=== PATIENT | female | born 1955 | race Caucasian/White ===

== ENCOUNTER 2019-07-08 11:51 | Inpatient (IN) | payer BC ==
[2019-07-08] VITALS (28 sets, daily range): BP systolic 70–131; BP diastolic 40–82
[~2019-07-08] VITALS: Ht 165.1 cm; Wt 65.3 kg
[2019-07-08] MEDS ORDERED: LIPITOR (12:00)
[2019-07-08] MEDS ORDERED: MELOXICAM (12:00)
[2019-07-08] MEDS ORDERED: IV NORMAL SALINE 1000 ML BAG IV ONE (12:00)
[2019-07-08] MEDS ORDERED: METFORMIN (12:00)
[2019-07-08] MEDS ORDERED: ONDANSETRON 4 MG/2 ML VIAL ONE (12:05)
[2019-07-08] MEDS ORDERED: ACETAMINOPHEN ES 500 MG TABLET ONE (12:14)
[2019-07-08] MEDS ORDERED: ONDANSETRON 4 MG/2 ML VIAL IV ONE (12:15)
[2019-07-08] MEDS ORDERED: ACETAMINOPHEN 325 MG TABLET PO ONE (12:15)
[2019-07-08 12:21] LABS: BASOPHILS % (AUTO) 0.1 % (0.0-2.0); HEMATOCRIT 41.8 % (31.2-41.9); HEMOGLOBIN 13.7 g/dL (10.9-14.3); LYMPHOCYTES # (AUTO) 0.5 K/uL (20.0-40.0); LYMPHOCYTES % (AUTO) 13.7 % (20.5-51.5); MEAN CORPUSCULAR HEMOGLOBIN 31.6 uug (24.7-32.8); MEAN CORPUSCULAR HGB CONC 33 g/dL (32.3-35.6); MEAN CORPUSCULAR VOLUME 96.3 fL (75.5-95.3); MONOCYTES % (AUTO) 0.4 % (0.0-11.0); NEUTROPHILS # (AUTO) 3.2 K/uL (1.8-8.9); NEUTROPHILS % (AUTO) 85.8 % (38.5-71.5); PLATELET COUNT (AUTO) 156 K/uL (179-408); RED BLOOD CELL COUNT(AUTO) 4.34 MIL/uL (3.63-4.92); WHITE BLOOD COUNT (AUTO) 3.7 K/uL (3.8-11.8)
[2019-07-08 12:30] LABS: CREATININE 1.6 mg/dL (0.6-1.3); POTASSIUM 3.3 mmol/L (3.5-5.1)
[2019-07-08 12:42] LABS: BILIRUBIN,DIRECT 0.5 mg/dL (0.0-0.2); BILIRUBIN,TOTAL 1.1 mg/dL (0.2-1.0); TOTAL PROTEIN, SERUM 7.1 g/dL (6.4-8.2)
[2019-07-08] MEDS ORDERED: IV NORMAL SALINE 500 ML BAG IV ONE ×2 (12:45→14:30)
[2019-07-08] MEDS ORDERED: PIPERACILLIN SODIUM/TAZOBACTAM 3.375 G in IV DEXTROSE 5% 50 ML IV ONE (13:00)
[2019-07-08] MEDS ORDERED: PIPERACILLIN/TAZOBACTAM/D5W 50 ML IV ONE (13:09)
[2019-07-08 13:10] LABS: *BILIRUBIN,URIN NEGATIVE (NEGATIVE); *BLOOD, URINE 2+ (NEGATIVE); *CLARITY,URINE SLIGHTLY CLOUDY (CLEAR); *COLOR,URINE YELLOW (YELLOW); *KETONES,URINE TRACE (NEGATIVE); *UROBILINOGEN,URINE 0.2 E.U./dl (NORMAL); LEUKOCYTE ESTERASE ,URINE TRACE (NEGATIVE); NITRITE, URINE POSITIVE (NEGATIVE); PH,URINE 5.5 (5.0-8.0); UGLUCOSE NEGATIVE (NEGATIVE)
[2019-07-08] MEDS ORDERED: ATOR10TA PO (13:10)
[2019-07-08] MEDS ORDERED: METF-440 PO (13:10)
[2019-07-08 13:16] LABS: ABG HCO3 13.3 mmol/L; ABG PCO2 23.2 mmHg (35.0-45.0); ABG PH 7.377 (7.350-7.450); ABG PO2 67.2 mmHg (75.0-100.0); ABG SITE LEFT RADIAL; ABG TOTAL HEMOGLOBIN 12.3 G/dL (12.0-16.0); COHb 0.9 % (0.5-1.5); MetHb 0.4 % (0.0-1.5); O2Hb 91.7 % (94.0-97.0); VENT MODE room air
[2019-07-08 13:20] LABS: BACTERIA,URINE MODERATE /HPF (NONE SEEN); SQUAMOUS EPITHELIAL CELL,UR FEW /HPF (NONE SEEN); WBC,URINE 0-3 /HPF (0-3)
[2019-07-08] MEDS ORDERED: NOREPINEPHRINE BITARTRATE 8 MG in IV DEXTROSE 5% 500 ML IV ONE (14:30)
[2019-07-08] MEDS ORDERED: MORPHINE SULFATE 2 MG/1 ML DISP.SYRIN IV PRN (16:30)
[2019-07-08] MEDS ORDERED: PHENYLEPHRINE IV 20 MG in IV DEXTROSE 5% 250 ML IV PRN (16:30)
[2019-07-08] MEDS ORDERED: ONDANSETRON 4 MG/2 ML VIAL IV PRN (16:30)
[2019-07-08] MEDS ORDERED: POTASSIUM CHLORIDE 20 MEQ in IV NS 1000 ML 1,000 ML IV PRN (16:30)
[2019-07-08] MEDS ORDERED: VANCOMYCIN IV 1,000 MG in IV DEXTROSE 5% 250 ML IV SCH (17:00)
[2019-07-08] MEDS: NOREPINEPHRINE BITARTRATE 8 MG in IV DEXTROSE 5% 500 ML IV PRN ×2 (17:02→20:16)
[2019-07-08] MEDS: PHENYLEPHRINE IV 20 MG in IV DEXTROSE 5% 250 ML IV PRN ×2 (18:54→21:54)
[2019-07-08] MEDS ORDERED: IV NORMAL SALINE 500 ML IV ONE (20:15)
[2019-07-08] MEDS: ACETAMINOPHEN 325 MG TABLET PO PRN (20:39)
[2019-07-08] MEDS: MELATONIN 3 MG TABLET PO SCH (20:41)
[2019-07-08] MEDS ORDERED: DEXTROSE 50% 50 ML DISP.SYRIN IV PRN (20:45)
[2019-07-08] MEDS: PIPERACILLIN SODIUM/TAZOBACTAM 3.375 G in IV DEXTROSE 5% 50 ML IV SCH (21:31)
[2019-07-08] MEDS: BLOOD SUGAR DIAGNOSTIC 1 EACH STRIP VI SCH (21:46)
[2019-07-08] MEDS: INSULIN REGULAR, HUMAN 300 UNIT/3 ML VIAL SQ PRN (21:52)
[2019-07-09] VITALS (83 sets, daily range): BP systolic 73–147; BP diastolic 37–117
[2019-07-09] MEDS: NOREPINEPHRINE BITARTRATE 8 MG in IV DEXTROSE 5% 500 ML IV PRN ×4 (00:24→19:45)
[2019-07-09] MEDS: PHENYLEPHRINE IV 20 MG in IV DEXTROSE 5% 250 ML IV PRN ×4 (00:24→08:30)
[2019-07-09] MEDS: PIPERACILLIN SODIUM/TAZOBACTAM 3.375 G in IV DEXTROSE 5% 50 ML IV SCH (05:16)
[2019-07-09 05:31] LABS: BILIRUBIN,TOTAL 1.4 mg/dL (0.2-1.0); CREATININE 2.3 mg/dL (0.6-1.3); PHOSPHOROUS 3.7 mg/dL (2.5-4.9); POTASSIUM 3.7 mmol/L (3.5-5.1); TOTAL PROTEIN, SERUM 5.9 g/dL (6.4-8.2)
[2019-07-09 05:33] LABS: MAGNESIUM 1.2 mg/dL (1.8-2.4)
[2019-07-09 05:36] LABS: THYROID STIMULATING HORMONE 0.634 mIU/mL (0.358-3.740)
[2019-07-09 06:24] LABS: BASOPHILS # (AUTO) 0.1 K/uL (0.0-8.0); HEMOGLOBIN 12.5 g/dL (10.9-14.3); LYMPHOCYTES # (AUTO) 1.4 K/uL (20.0-40.0); LYMPHOCYTES % (AUTO) 3.7 % (20.5-51.5); PLATELET COUNT (AUTO) 105 K/uL (179-408)
[2019-07-09 06:26] LABS: BASOPHILS % (AUTO) 0.3 % (0.0-2.0); EOSINOPHILS # (AUTO) 9.1 K/uL (0.0-0.7); EOSINOPHILS % (AUTO) 23.9 % (0.0-7.0); MEAN CORPUSCULAR HEMOGLOBIN 30.8 uug (24.7-32.8); MEAN CORPUSCULAR HGB CONC 33 g/dL (32.3-35.6); MEAN CORPUSCULAR VOLUME 93.5 fL (75.5-95.3); MONOCYTES # (AUTO) 0.8 K/uL (2.0-10.0); NEUTROPHILS # (AUTO) 26.6 K/uL (1.8-8.9); NEUTROPHILS % (AUTO) 70.1 % (38.5-71.5); RED BLOOD CELL COUNT(AUTO) 4.07 MIL/uL (3.63-4.92)
[2019-07-09 07:13] LABS: BAND % (MANUAL) 14 % (0-10); LYMPHOCYTES % (MANUAL) 1 % (20-40); METAMYELOCYTES % 10 % (0-1); MONOCYTES % (MANUAL) 3 % (2-10); MYELOCYTES % 4 % (0-0); NEUTROPHILS % (MANUAL) 68 % (42-75)
[2019-07-09] MEDS: PANTOPRAZOLE SODIUM 40 MG TABLET.DR PO SCH (07:25)
[2019-07-09] MEDS: BLOOD SUGAR DIAGNOSTIC 1 EACH STRIP VI SCH ×4 (07:49→20:50)
[2019-07-09] MEDS: INSULIN REGULAR, HUMAN 300 UNIT/3 ML VIAL SQ PRN ×4 (07:52→20:58)
[2019-07-09] MEDS: IV LACTATED RINGERS SOLUTION 1,000 ML IV PRN ×2 (08:29→21:37)
[2019-07-09] MEDS: MAGNESIUM SULFATE/D5W 100 ML IV SCH ×3 (09:27→11:30)
[2019-07-09 09:40] LABS: *BILIRUBIN,URIN NEGATIVE (NEGATIVE); *BLOOD, URINE 2+ (NEGATIVE); *COLOR,URINE YELLOW (YELLOW); *KETONES,URINE NEGATIVE (NEGATIVE); *UROBILINOGEN,URINE 0.2 E.U./dl (NORMAL); LEUKOCYTE ESTERASE ,URINE 1+ (NEGATIVE); NITRITE, URINE NEGATIVE (NEGATIVE); PH,URINE 5.5 (5.0-8.0); UGLUCOSE NEGATIVE (NEGATIVE)
[2019-07-09 09:41] LABS: *CLARITY,URINE HAZY (CLEAR)
[2019-07-09 09:46] LABS: *CREATININE,URINE 43.6 mg/dL (30-125); *URINE TOTAL PROTEIN RANDOM 34.2 mg/dL (<150/24HR)
[2019-07-09 09:48] LABS: RBC,URINE 20-50 /HPF (0-3)
[2019-07-09 09:50] LABS: BACTERIA,URINE MODERATE /HPF (NONE SEEN); SQUAMOUS EPITHELIAL CELL,UR FEW /HPF (NONE SEEN); WBC,URINE 20-50 /HPF (0-3)
[2019-07-09] MEDS ORDERED: VANCOMYCIN IV 1,000 MG in IV DEXTROSE 5% 250 ML IV ONE (10:00)
[2019-07-09] MEDS ORDERED: MEROPENEM 500 MG in IV NORMAL SALINE 50 ML IV SCH (10:15)
[2019-07-09] MEDS ORDERED: DOSING PER PHARMACY-AMIKACIN IV XX PRN (10:15)
[2019-07-09] MEDS: PHENYLEPHRINE IV 40 MG in IV DEXTROSE 5% 250 ML IV PRN ×2 (10:22→13:59)
[2019-07-09] MEDS: MEROPENEM 500 MG in IV NORMAL SALINE 50 ML IV SCH ×2 (11:04→20:50)
[2019-07-09] MEDS: AMIKACIN 300 MG in IV DEXTROSE 5% 100 ML IV SCH (11:40)
[2019-07-09] MEDS ORDERED: ASPIRIN 81 MG TAB.CHEW PO ONE (13:00)
[2019-07-09] MEDS: PHENYLEPHRINE IV 80 MG in IV DEXTROSE 5% 250 ML IV PRN (17:31)
[2019-07-09] MEDS: ACETAMINOPHEN 325 MG TABLET PO PRN (20:02)
[2019-07-09] MEDS: TAMSULOSIN HCL 0.4 MG CAP.SR.24H PO SCH (20:49)
[2019-07-09] MEDS: ATORVASTATIN 10 MG TABLET PO SCH (20:49)
[2019-07-09] MEDS: MELATONIN 3 MG TABLET PO SCH (20:58)
[2019-07-09] MEDS ORDERED: TEMAZEPAM 7.5 MG CAPSULE PO ONE (22:00)
[2019-07-10] VITALS (72 sets, daily range): BP systolic 82–139; BP diastolic 45–92
[2019-07-10] MEDS: ACETAMINOPHEN 325 MG TABLET PO PRN ×2 (01:40→20:51)
[2019-07-10] MEDS: PHENYLEPHRINE IV 80 MG in IV DEXTROSE 5% 250 ML IV PRN ×2 (02:02→10:10)
[2019-07-10] MEDS: AMIKACIN 300 MG in IV DEXTROSE 5% 100 ML IV SCH ×3 (04:55→22:20)
[2019-07-10] MEDS: PANTOPRAZOLE SODIUM 40 MG TABLET.DR PO SCH (06:15)
[2019-07-10 06:17] LABS: BASOPHILS # (AUTO) 0.1 K/uL (0.0-8.0); EOSINOPHILS # (AUTO) 1.5 K/uL (0.0-0.7); HEMATOCRIT 34.6 % (31.2-41.9); HEMOGLOBIN 11.6 g/dL (10.9-14.3)
[2019-07-10 06:19] LABS: BASOPHILS % (AUTO) 0.2 % (0.0-2.0); EOSINOPHILS % (AUTO) 4.6 % (0.0-7.0); LYMPHOCYTES # (AUTO) 1.4 K/uL (20.0-40.0); LYMPHOCYTES % (AUTO) 4.5 % (20.5-51.5); MEAN CORPUSCULAR HEMOGLOBIN 30.8 uug (24.7-32.8); MEAN CORPUSCULAR HGB CONC 34 g/dL (32.3-35.6); MEAN CORPUSCULAR VOLUME 91.6 fL (75.5-95.3); MONOCYTES % (AUTO) 3.3 % (0.0-11.0); NEUTROPHILS # (AUTO) 27.8 K/uL (1.8-8.9); NEUTROPHILS % (AUTO) 87.4 % (38.5-71.5); PLATELET COUNT (AUTO) 67 K/uL (179-408); RED BLOOD CELL COUNT(AUTO) 3.78 MIL/uL (3.63-4.92)
[2019-07-10 06:22] LABS: WHITE BLOOD COUNT (AUTO) 31.8 K/uL (3.8-11.8)
[2019-07-10] MEDS: BLOOD SUGAR DIAGNOSTIC 1 EACH STRIP VI SCH ×4 (06:42→20:55)
[2019-07-10 06:57] LABS: BILIRUBIN,TOTAL 0.7 mg/dL (0.2-1.0); CREATININE 0.9 mg/dL (0.6-1.3); MAGNESIUM 2.1 mg/dL (1.8-2.4); PHOSPHOROUS 1.4 mg/dL (2.5-4.9); POTASSIUM 3.2 mmol/L (3.5-5.1); TOTAL PROTEIN, SERUM 5.9 g/dL (6.4-8.2)
[2019-07-10] MEDS: IV LACTATED RINGERS SOLUTION 1,000 ML IV PRN ×2 (07:26→18:52)
[2019-07-10] MEDS: ASPIRIN 81 MG TAB.CHEW PO SCH (08:23)
[2019-07-10] MEDS: INSULIN REGULAR, HUMAN 300 UNIT/3 ML VIAL SQ PRN ×4 (08:23→20:46)
[2019-07-10] MEDS: MEROPENEM 500 MG in IV NORMAL SALINE 50 ML IV SCH ×2 (08:24→20:31)
[2019-07-10] MEDS: TAMSULOSIN HCL 0.4 MG CAP.SR.24H PO SCH ×2 (08:24→20:32)
[2019-07-10] MEDS: POTASSIUM PHOSPHATE MM 7.5 MMOL in IV DEXTROSE 5% 100 ML IV SCH ×2 (10:37→12:37)
[2019-07-10] MEDS ORDERED: Z GUARD REMEDY PASTE 57 GM TUBE TOP PRN (16:00)
[2019-07-10] MEDS: ATORVASTATIN 10 MG TABLET PO SCH (20:32)
[2019-07-10] MEDS: MELATONIN 3 MG TABLET PO SCH (21:00)
[2019-07-10] MEDS: TEMAZEPAM 15 MG CAPSULE PO SCH (21:48)
[2019-07-11] VITALS (14 sets, daily range): BP systolic 109–138; BP diastolic 66–86
[2019-07-11] MEDS: IV LACTATED RINGERS SOLUTION 1,000 ML IV PRN (04:17)
[2019-07-11 05:21] LABS: BASOPHILS # (AUTO) 0.1 K/uL (0.0-8.0); BASOPHILS % (AUTO) 0.3 % (0.0-2.0); EOSINOPHILS # (AUTO) 0.2 K/uL (0.0-0.7); EOSINOPHILS % (AUTO) 1.1 % (0.0-7.0); HEMATOCRIT 32.3 % (31.2-41.9); HEMOGLOBIN 10.9 g/dL (10.9-14.3); LYMPHOCYTES # (AUTO) 1.7 K/uL (20.0-40.0); LYMPHOCYTES % (AUTO) 10.6 % (20.5-51.5); MEAN CORPUSCULAR HEMOGLOBIN 30.9 uug (24.7-32.8); MEAN CORPUSCULAR HGB CONC 34 g/dL (32.3-35.6); MEAN CORPUSCULAR VOLUME 91.6 fL (75.5-95.3); MONOCYTES # (AUTO) 0.8 K/uL (2.0-10.0); MONOCYTES % (AUTO) 4.7 % (0.0-11.0); NEUTROPHILS # (AUTO) 13.4 K/uL (1.8-8.9); NEUTROPHILS % (AUTO) 83.3 % (38.5-71.5); PLATELET COUNT (AUTO) 66 K/uL (179-408); RED BLOOD CELL COUNT(AUTO) 3.52 MIL/uL (3.63-4.92); WHITE BLOOD COUNT (AUTO) 16.1 K/uL (3.8-11.8)
[2019-07-11 05:28] LABS: CREATININE 0.6 mg/dL (0.6-1.3); MAGNESIUM 1.8 mg/dL (1.8-2.4); PHOSPHOROUS 2.2 mg/dL (2.5-4.9); POTASSIUM 3.6 mmol/L (3.5-5.1)
[2019-07-11 06:15] LABS: BAND % (MANUAL) 4 % (0-10); EOSINOPHILS % (MANUAL) 1 % (0-8); LYMPHOCYTES % (MANUAL) 7 % (20-40); MONOCYTES % (MANUAL) 7 % (2-10); NEUTROPHILS % (MANUAL) 81 % (42-75)
[2019-07-11] MEDS: PANTOPRAZOLE SODIUM 40 MG TABLET.DR PO SCH (06:17)
[2019-07-11] MEDS: BLOOD SUGAR DIAGNOSTIC 1 EACH STRIP VI SCH ×4 (07:51→20:50)
[2019-07-11] MEDS: AMIKACIN 300 MG in IV DEXTROSE 5% 100 ML IV SCH (07:51)
[2019-07-11] MEDS: INSULIN REGULAR, HUMAN 300 UNIT/3 ML VIAL SQ PRN ×4 (07:53→20:51)
[2019-07-11] MEDS: ASPIRIN 81 MG TAB.CHEW PO SCH (08:14)
[2019-07-11] MEDS: MEROPENEM 500 MG in IV NORMAL SALINE 50 ML IV SCH (08:28)
[2019-07-11] MEDS: TAMSULOSIN HCL 0.4 MG CAP.SR.24H PO SCH ×3 (08:33→20:53)
[2019-07-11] MEDS: POTASSIUM PHOSPHATE MM 7.5 MMOL in IV DEXTROSE 5% 100 ML IV SCH ×2 (11:45→17:30)
[2019-07-11] MEDS ORDERED: CEFTRIAXONE 1 G VIAL IM SCH (13:15)
[2019-07-11] MEDS: ACETAMINOPHEN 325 MG TABLET PO PRN (15:14)
[2019-07-11] MEDS: CEFTRIAXONE 1 G in IV DEXTROSE 5% 50 ML IV SCH (15:15)
[2019-07-11] MEDS: ATORVASTATIN 10 MG TABLET PO SCH (20:53)
[2019-07-11] MEDS: MELATONIN 3 MG TABLET PO SCH (20:55)
[2019-07-11] MEDS: TEMAZEPAM 15 MG CAPSULE PO SCH (21:43)
[2019-07-12] VITALS: BP 127/72
[2019-07-12 04:24] VITALS: BP 144/80
[2019-07-12] MEDS: PANTOPRAZOLE SODIUM 40 MG TABLET.DR PO SCH (06:21)
[2019-07-12] MEDS: IV LACTATED RINGERS SOLUTION 1,000 ML IV PRN (06:27)
[2019-07-12] MEDS: BLOOD SUGAR DIAGNOSTIC 1 EACH STRIP VI SCH (06:39)
[2019-07-12 06:55] LABS: BASOPHILS # (AUTO) 0.1 K/uL (0.0-8.0); BASOPHILS % (AUTO) 0.5 % (0.0-2.0); EOSINOPHILS # (AUTO) 0.2 K/uL (0.0-0.7); EOSINOPHILS % (AUTO) 1.8 % (0.0-7.0); LYMPHOCYTES % (AUTO) 16.2 % (20.5-51.5); MEAN CORPUSCULAR HEMOGLOBIN 31.1 uug (24.7-32.8); MEAN CORPUSCULAR HGB CONC 33 g/dL (32.3-35.6); MEAN CORPUSCULAR VOLUME 93.7 fL (75.5-95.3); MONOCYTES # (AUTO) 0.6 K/uL (2.0-10.0); NEUTROPHILS # (AUTO) 9.7 K/uL (1.8-8.9); NEUTROPHILS % (AUTO) 76.5 % (38.5-71.5); RED BLOOD CELL COUNT(AUTO) 3.97 MIL/uL (3.63-4.92); WHITE BLOOD COUNT (AUTO) 12.6 K/uL (3.8-11.8)
[2019-07-12 07:02] LABS: BILIRUBIN,TOTAL 0.6 mg/dL (0.2-1.0); CREATININE 0.7 mg/dL (0.6-1.3); MAGNESIUM 1.8 mg/dL (1.8-2.4); PHOSPHOROUS 4.2 mg/dL (2.5-4.9); POTASSIUM 3.8 mmol/L (3.5-5.1); TOTAL PROTEIN, SERUM 6.5 g/dL (6.4-8.2)
[2019-07-12 07:12] LABS: HEMATOCRIT 37.2 % (31.2-41.9); HEMOGLOBIN 12.4 g/dL (10.9-14.3); PLATELET COUNT (AUTO) 104 K/uL (179-408)
[2019-07-12] MEDS: ASPIRIN 81 MG TAB.CHEW PO SCH (08:13)
[2019-07-12] MEDS: TAMSULOSIN HCL 0.4 MG CAP.SR.24H PO SCH ×2 (08:13→21:24)
[2019-07-12] MEDS: INSULIN REGULAR, HUMAN 300 UNIT/3 ML VIAL SQ PRN (08:20)
[2019-07-12 11:30] VITALS: BP 141/76
[2019-07-12] MEDS: CEFTRIAXONE 1 G in IV DEXTROSE 5% 50 ML IV SCH (14:10)
[2019-07-12 15:16] LABS: A/G RATIO 0.8 (0.7-1.7); ALBUMIN 2.2 g/dL (2.9-4.4); ALPHA-1-GLOBULIN 0.3 g/dL (0.0-0.4); ALPHA-2-GLOBULIN 0.8 g/dL (0.4-1.0); BETA GLOBULIN 0.8 g/dL (0.7-1.3); GAMMA GLOBULIN 0.7 g/dL (0.4-1.8); GLOBULIN, TOTAL 2.7 g/dL (2.2-3.9); M-SPIKE Not Observed g/dL (Not Observed)
[2019-07-12 20:02] VITALS: BP 139/85
[2019-07-12] MEDS: ATORVASTATIN 10 MG TABLET PO SCH (21:24)
[2019-07-12] MEDS: MELATONIN 3 MG TABLET PO SCH (21:25)
[2019-07-12] MEDS: TEMAZEPAM 15 MG CAPSULE PO SCH (22:08)
[2019-07-13 05:28] VITALS: BP 145/80
[2019-07-13] MEDS: PANTOPRAZOLE SODIUM 40 MG TABLET.DR PO SCH (07:02)
[2019-07-13] MEDS: ACETAMINOPHEN 325 MG TABLET PO PRN ×2 (08:44→17:44)
[2019-07-13] MEDS: ASPIRIN 81 MG TAB.CHEW PO SCH (08:46)
[2019-07-13] MEDS: TAMSULOSIN HCL 0.4 MG CAP.SR.24H PO SCH ×2 (08:46→20:21)
[2019-07-13 09:03] LABS: BASOPHILS # (AUTO) 0.1 K/uL (0.0-8.0); BASOPHILS % (AUTO) 0.8 % (0.0-2.0); EOSINOPHILS # (AUTO) 0.2 K/uL (0.0-0.7); EOSINOPHILS % (AUTO) 2.9 % (0.0-7.0); HEMATOCRIT 37.1 % (31.2-41.9); HEMOGLOBIN 12.3 g/dL (10.9-14.3); LYMPHOCYTES # (AUTO) 1.9 K/uL (20.0-40.0); LYMPHOCYTES % (AUTO) 22.2 % (20.5-51.5); MEAN CORPUSCULAR HGB CONC 33 g/dL (32.3-35.6); MEAN CORPUSCULAR VOLUME 93.6 fL (75.5-95.3); MONOCYTES % (AUTO) 11.8 % (0.0-11.0); NEUTROPHILS # (AUTO) 5.4 K/uL (1.8-8.9); NEUTROPHILS % (AUTO) 62.3 % (38.5-71.5); PLATELET COUNT (AUTO) 166 K/uL (179-408); RED BLOOD CELL COUNT(AUTO) 3.96 MIL/uL (3.63-4.92); WHITE BLOOD COUNT (AUTO) 8.7 K/uL (3.8-11.8)
[2019-07-13 09:05] LABS: CREATININE 0.6 mg/dL (0.6-1.3); POTASSIUM 3.8 mmol/L (3.5-5.1)
[2019-07-13 09:25] LABS: BAND % (MANUAL) 1 % (0-10); EOSINOPHILS % (MANUAL) 7 % (0-8); LYMPHOCYTES % (MANUAL) 29 % (20-40); MONOCYTES % (MANUAL) 10 % (2-10); NEUTROPHILS % (MANUAL) 53 % (42-75)
[2019-07-13] MEDS ORDERED: LEVO750T46 PO (11:04)
[2019-07-13 11:10] VITALS: BP 116/64
[2019-07-13 15:00] VITALS: BP 134/68
[2019-07-13] MEDS: CEFTRIAXONE 1 G in IV DEXTROSE 5% 50 ML IV SCH (19:49)
[2019-07-13 20:00] VITALS: BP 143/81
[2019-07-13] MEDS: ATORVASTATIN 10 MG TABLET PO SCH (20:21)
[2019-07-13] MEDS: MELATONIN 3 MG TABLET PO SCH (20:21)
[2019-07-13] MEDS: TEMAZEPAM 15 MG CAPSULE PO SCH (20:21)
[2019-07-14 05:48] VITALS: BP 132/64
[2019-07-14] MEDS: PANTOPRAZOLE SODIUM 40 MG TABLET.DR PO SCH (06:05)
[2019-07-14] MEDS: TAMSULOSIN HCL 0.4 MG CAP.SR.24H PO SCH (08:34)
[2019-07-14] MEDS: ASPIRIN 81 MG TAB.CHEW PO SCH (08:35)
[2019-07-14] MEDS: ACETAMINOPHEN 325 MG TABLET PO PRN (08:38)
[2019-07-14 11:45] LABS: BILIRUBIN,DIRECT 0.1 mg/dL (0.0-0.2); BILIRUBIN,TOTAL 0.5 mg/dL (0.2-1.0)
[2019-07-14 12:06] VITALS: BP 131/73
== END 2019-07-14 14:15 | disposition home or self-care (01) | DRG 871 ==
LOC: ER 11:51 → CCU 16:02 → TELE3 07-11 11:54 → MEDSURG3 07-12 20:45
PROVIDERS: ADMIT Internal Medicine; ATTEND Internal Medicine
PROC: 05HM33Z Insertion of Infusion Device into Right Internal Jugular Vein, Percutaneous Approach (ICD-10-PCS; principal; 2019-07-08)
PROC: 05HB33Z Insertion of Infusion Device into Right Basilic Vein, Percutaneous Approach (ICD-10-PCS; 2019-07-14)
DX: A41.51 Sepsis due to Escherichia coli [E. coli] (principal); R65.21 Severe sepsis with septic shock; J96.01 Acute respiratory failure with hypoxia; N17.0 Acute kidney failure with tubular necrosis; I21.A1 Myocardial infarction type 2; I50.31 Acute diastolic (congestive) heart failure; E43 Unspecified severe protein-calorie malnutrition; N39.0 Urinary tract infection, site not specified; N13.2 Hydronephrosis with renal and ureteral calculous obstruction; E87.2 Acidosis; E87.0 Hyperosmolality and hypernatremia; I08.1 Rheumatic disorders of both mitral and tricuspid valves; D69.6 Thrombocytopenia, unspecified; E83.42 Hypomagnesemia; E78.5 Hyperlipidemia, unspecified; E87.6 Hypokalemia; M19.90 Unspecified osteoarthritis, unspecified site; E11.9 Type 2 diabetes mellitus without complications; Z79.84 Long term (current) use of oral hypoglycemic drugs; Z79.899 Other long term (current) drug therapy
CPT/HCPCS: 36415; 36556; 36600; 70030-TC; 71045; 76770; 83605; 83735; 83970; 84100; 84155; 84156; 84165; 84300; 84443; 85025; 85730; 87040; 87077; 87086; 87400; 93005; 93307; A4663; A9150; G0378; J0278; J0696; J1815; J2185; J2370; J2405; J2543; J3370; J3475; J3480; J3490; J7030; J7050; J7060; J7120